=== PATIENT | female | born 1975 | race African-American/Black ===

== ENCOUNTER 2016-11-14 11:34 | Emergency (ER) | payer SELFPAY ==
[~2016-11-14 11:34] MED LIST: SULF1TAB24 PO
[2016-11-14 11:59] VITALS: BP 147/80
[2016-11-14] MEDS ORDERED: ONDA4TAB7 PO (12:32)
--- NOTE | 2016-11-14 12:32 | PHYS DOC ---
Past Medical History Past Medical History: No Pertinent History Past Surgical History: Other Additional Past Surgical Histo: umbilical hernia Alcohol Use: Rarely Drug Use: None Adult General Chief Complaint Chief Complaint: NAUSEA/VOMITING/DIARRHA HPI HPI 41-year-old female who states she's had ongoing diarrheal illness for the last 2 -3 days. She denies any nausea or vomiting. She denies any lightheadedness or dizziness. She denies any significant abdominal pain but does state she has some mild cramping prior to her diarrheal episodes that fully resolves after having a bowel movement. She denies any fever or chills. She does report some myalgias. She states her symptoms are worse on Tuesday at onset but have improved over the last several days. She is requesting a work note at this time. She does report that she had a recent head cold and believes this could be somewhat related. She denies any other specific symptoms at this time. Review of Systems Review of Systems Constitutional: Denies fever or chills [] Eyes: Denies change in visual acuity, redness, or eye pain [] HENT: Denies nasal congestion or sore throat [] Respiratory: Denies cough or shortness of breath [] Cardiovascular: No additional information not addressed in HPI [] GI: Denies abdominal pain, nausea, vomiting, bloody stools, has diarrhea [] : Denies dysuria or hematuria [] Musculoskeletal: Denies back pain or joint pain [] Integument: Denies rash or skin lesions [] Neurologic: Denies headache, focal weakness or sensory changes [] Endocrine: Denies polyuria or polydipsia [] Current Medications Current Medications Current Medications Medications (Trade) Dose Ordered Sig/[facility] Start Time Stop Time Status Last Admin Dose Admin Ondansetron HCl (Zofran Odt) 4 mg 1X ONCE 11/14/16 13:00 11/14/16 13:01 11/14/16 12:35 4 MG Allergies Allergies Allergies Coded Allergies Type Severity Reaction Last Updated Verified No Known Drug Allergies 04/03/16 No Physical Exam Physical Exam Constitutional: Well developed, well nourished, no acute distress, non-toxic appearance. [] HENT: Normocephalic, atraumatic, bilateral external ears normal, oropharynx moist, no oral exudates, nose normal. [] Eyes: PERRLA, EOMI, conjunctiva normal, no discharge. [] Neck: Normal range of motion, no tenderness, supple, no stridor. [] Cardiovascular:Heart rate regular rhythm, no murmur [] Lungs & Thorax: Bilateral breath sounds clear to auscultation [] Abdomen: Bowel sounds normal, soft, no tenderness, no masses, no pulsatile masses. [] Skin: Warm, dry, no erythema, no rash. [] Back: No tenderness, no CVA tenderness. [] Extremities: No tenderness, no cyanosis, no clubbing, ROM intact, no edema. [] Neurologic: Alert and oriented X 3, normal motor function, normal sensory function, no focal deficits noted. [] Psychologic: Affect normal, judgement normal, mood normal. [] Current Patient Data Vital Signs Vital Signs Date Time Temp Pulse Resp B/P Pulse Ox O2 Delivery O2 Flow Rate FiO2 11/14/16 11:59 98.4 16 16 100 Room Air 98.4 EKG EKG [] Radiology/Procedures Radiology/Procedures [] Course & Med Decision Making Course & Med Decision Making Pertinent Labs and Imaging studies reviewed. (See chart for details) 41-year-old female who's had ongoing diarrheal illness last 2-3 days will be discharged without need for workup. She successfully oral fluid challenged after Zofran ODT. She'll be provided a brief course of that. He was instructed to follow closely with her primary care doctor next several days if her symptoms do not resolve or if she is unable to tolerate oral fluids at home or if she develops any significant weakness. Dragon Disclaimer Dragon Disclaimer This electronic medical record was generated, in whole or in part, using a voice recognition dictation system. Departure Departure Impression: Primary Impression: Diarrhea Disposition: 01 HOME, SELF-CARE Admitting Physician: Other Condition: STABLE Referrals: TASHA NASH MD (PCP) Patient Instructions: Diarrhea, [id number] Additional Instructions: Please continue to drink plenty of fluids and take your zofran as needed. Follow up with your primary doctor in the next 2-3 days regarding your recent diarrhea. Return to the ER if you develop any worsening of your symptoms or are unable to tolerate fluids specifically water or become weak or lightheaded. Scripts Ondansetron Hcl (Zofran)4 Mg Tablet4 Mg PO BID PRN NAUSEA/VOMITING #10 TAB Prov:JESICA QUEZADA DO 11/14/16 JESICA QUEZADA DO Nov 14, 2016 12:32
[2016-11-14] MEDS ORDERED: ONDANSETRON ODT 4 MG TAB.RAPDIS PO ONE (13:00)
== END 2016-11-14 12:40 | disposition home or self-care (01) ==
LOC: ER 11:34
DX: R19.7 Diarrhea, unspecified (principal); Z98.890 Other specified postprocedural states
CPT/HCPCS: 99283; Q0162

== ENCOUNTER 2020-01-27 20:35 | Emergency (ER) | payer SELFPAY ==
[~2020-01-27] VITALS: Ht 167.6 cm; Wt 56.8 kg
[~2020-01-27 20:35] MED LIST changes: +ONDA4TAB7 PO
[2020-01-27] MEDS ORDERED: METH4TAB2 PO (21:23)
[2020-01-27] MEDS ORDERED: SULF1TAB24 PO (21:23)
--- NOTE | 2020-01-27 21:23 | PHYS DOC ---
Past Medical History Past Medical History: No Pertinent History Past Surgical History: Other Additional Past Surgical Histo: umbilical hernia Smoking Status: Current Every Day Smoker Alcohol Use: Rarely Drug Use: None General Adult EDM: Chief Complaint: SKIN PROBLEM HPI: HPI: Patient is a 44 year old female complains of rash, itching and burning to her right wrist. She states that she is getting a red streak that is going up her right arm. Patient thinks that she may have been bitten by something but does not know. She indicates that she has not been outside so has not been exposed to poison danish or anything like that. She denies any fever. [] Review of Systems: Review of Systems: Constitutional: Denies fever or chills. [] Respiratory: Denies cough or shortness of breath. [] Cardiovascular: Denies chest pain or edema. [] Integument: Complains of rash. [] Neurologic: Denies headache, focal weakness or sensory changes. [] Heart Score: Risk Factors: Risk Factors: DM, Current or recent (<one month) smoker, HTN, HLP, family history of CAD, obesity. Risk Scores: Score 0 - 3: 2.5% MACE over next 6 weeks - Discharge Home Score 4 - 6: 20.3% MACE over next 6 weeks - Admit for Clinical Observation Score 7 - 10: 72.7% MACE over next 6 weeks - Early Invasive Strategies Current Medications: Current Medications Medications (Trade) Dose Ordered Sig/[facility] Start Time Stop Time Status Last Admin Dose Admin Clonidine HCl (Catapres) 0.2 mg 1X ONCE 01/27/20 21:30 01/27/20 21:31 01/27/20 21:10 0.1 MG Prednisone (Prednisone) 50 mg 1X ONCE 01/27/20 21:30 01/27/20 21:31 01/27/20 21:09 50 MG Trimethoprim/ Sulfamethoxazole (Bactrim Ds) 1 tab 1X ONCE 01/27/20 21:30 01/27/20 21:31 01/27/20 21:09 1 TAB Allergies: Allergies: Allergies Coded Allergies Type Severity Reaction Last Updated Verified No Known Drug Allergies 04/03/16 No Physical Exam: PE: Constitutional: Well developed, well nourished, no acute distress, non-toxic ap pearance. [] Cardiovascular:Heart rate regular rhythm, no murmur [] Lungs & Thorax: Bilateral breath sounds clear to auscultation [] Skin: Volar aspect of right wrist demonstrates erythema, warmth with mild tenderness. [] Neurologic: Alert and oriented X 3, no focal deficits noted. [] Current Patient Data: Vital Signs: Vital Signs Date Time Temp Pulse Resp B/P (MAP) Pulse Ox O2 Delivery O2 Flow Rate FiO2 01/27/20 21:10 97 175/104 01/27/20 20:42 98.2 16 100 Room Air 98.2 EKG: EKG: [] Radiology/Procedures: Radiology/Procedures: [] Course & Med Decision Making: Course & Med Decision Making Pertinent Labs and Imaging studies reviewed. (See chart for details) [] Dragon Disclaimer: MulliganPlus Disclaimer: This electronic medical record was generated, in whole or in part, using a voice recognition dictation system. Departure Departure Impression: Primary Impression: Insect bite Qualified Codes: W57.XXXA - Bitten or stung by nonvenomous insect and other nonvenomous arthropods, initial encounter Disposition: 01 HOME, SELF-CARE Condition: STABLE Referrals: NO PCP (PCP) Patient Instructions: Insect Bite Scripts Methylprednisolone (MEDROL) 4 Mg Tab.ds.pk 1 PKG PO UD, #1 PKG Prov: ARA BOO Jr. DO 01/27/20 Sulfamethoxazole/Trimethoprim (BACTRIM DS TABLET) 1 Each Tablet 1 TAB PO BID for 10 Days, #20 TAB 0 Refills Prov: ARA BOO Jr. DO 01/27/20 ARA BOO Jr. DO January 27, 2020 21:23
[2020-01-27] MEDS ORDERED: SMZ/TMP 800/160MG TABLET. PO ONE (21:30)
[2020-01-27] MEDS ORDERED: cloNIDine HCL 0.1 MG TABLET PO ONE (21:30)
[2020-01-27] MEDS ORDERED: predniSONE 10 MG TABLET PO ONE (21:30)
[2020-01-27 21:40] VITALS: BP 178/96
== END 2020-01-27 21:41 | disposition home or self-care (01) ==
LOC: ER 20:35
DX: S60.861A Insect bite (nonvenomous) of right wrist, initial encounter (principal); R21 Rash and other nonspecific skin eruption; F17.200 Nicotine dependence, unspecified, uncomplicated; F12.90 Cannabis use, unspecified, uncomplicated; Z98.890 Other specified postprocedural states; W57.XXXA Bitten or stung by nonvenomous insect and other nonvenomous arthropods, initial encounter; Y93.89 Activity, other specified; Y92.89 Other specified places as the place of occurrence of the external cause; Y99.8 Other external cause status
CPT/HCPCS: 99284; J7512

== ENCOUNTER 2020-06-11 16:10 | Emergency (ER) | payer SELFPAY ==
[~2020-06-11] VITALS: Ht 167.6 cm; Wt 55.0 kg
[~2020-06-11 16:10] MED LIST changes: +METH4TAB2 PO
--- NOTE | 2020-06-11 16:40 | ED.ADGEN ---
Past Medical History Past Medical History: No Pertinent History Past Surgical History: Other Additional Past Surgical Histo: umbilical hernia Smoking Status: Current Every Day Smoker Alcohol Use: Rarely Drug Use: None Adult General Chief Complaint Chief Complaint: CHEST PAIN HPI HPI Patient is a 44 year old female coming in for chest pain for 2 weeks, states today got more intense and feels like a "grabbing" pain that radiates to the left also having blurred vision. Says pain is worse with stress. Has been seen prior to being diagnosed with hypertension but has not been on medications or seen her physician in years. Significant family history of heart disease and CT in mother. Smokes daily. Occasional alcohol use. Also complaining of occasional diarrhea, breast tenderness, itching in her bellybutton. Review of Systems Review of Systems Constitutional: Denies fever or chills. [] Eyes: Denies change in visual acuity. [] HENT: Denies nasal congestion or sore throat. [] Respiratory: Denies cough or shortness of breath. [] Cardiovascular: Denies chest pain or edema. [] GI: Denies abdominal pain, nausea, vomiting, bloody stools or diarrhea. [] : Denies dysuria. [] Musculoskeletal: Denies back pain or joint pain. [] Integument: Denies rash. [] Neurologic: Denies headache, focal weakness or sensory changes. [] Endocrine: Denies polyuria or polydipsia. [] Lymphatic: Denies swollen glands. [] Psychiatric: Denies depression or anxiety. [] Allergies Allergies Allergies Coded Allergies Type Severity Reaction Last Updated Verified No Known Drug Allergies 04/03/16 No Physical Exam Physical Exam Constitutional: Well developed, well nourished, no acute distress, non-toxic appearance. [] HENT: Normocephalic, atraumatic, bilateral external ears normal, oropharynx moist, no oral exudates, nose normal. [] Eyes: PERRLA, EOMI, conjunctiva normal, no discharge. [] Neck: Normal range of motion, no tenderness, supple, no stridor. [] Cardiovascular:Heart rate regular rhythm, no murmur [] Lungs & Thorax: Bilateral breath sounds clear to auscultation [] Abdomen: Bowel sounds normal, soft, no tenderness, no masses, no pulsatile masses. [] Skin: Warm, dry, no erythema, no rash. [] Back: No tenderness, no CVA tenderness. [] Extremities: No tenderness, no cyanosis, no clubbing, ROM intact, no edema. [] Neurologic: Alert and oriented X 3, normal motor function, normal sensory function, no focal deficits noted. [] Psychologic: Affect normal, judgement normal, mood normal. [] Current Patient Data Vital Signs Vital Signs Date Time Temp Pulse Resp B/P (MAP) Pulse Ox O2 Delivery O2 Flow Rate FiO2 06/11/20 16:10 98.2 99 18 102/60 (74) Room Air 98.2 Lab Values Laboratory Tests Test 06/11/20 16:30 White Blood Count 5.2 x10^3/uL (4.0-11.0) Red Blood Count 4.10 x10^6/uL (3.50-5.40) Hemoglobin 13.9 g/dL (12.0-15.5) Hematocrit 39.1 % (36.0-47.0) Mean Corpuscular Volume 96 fL (79-100) Mean Corpuscular Hemoglobin 34 pg (25-35) Mean Corpuscular Hemoglobin Concent 36 g/dL (31-37) Red Cell Distribution Width 12.8 % (11.5-14.5) Platelet Count 187 x10^3/uL (140-400) Neutrophils (%) (Auto) 50 % (31-73) Lymphocytes (%) (Auto) 39 % (24-48) Monocytes (%) (Auto) 7 % (0-9) Eosinophils (%) (Auto) 3 % (0-3) Basophils (%) (Auto) 1 % (0-3) Neutrophils # (Auto) 2.6 x10^3/uL (1.8-7.7) Lymphocytes # (Auto) 2.0 x10^3/uL (1.0-4.8) Monocytes # (Auto) 0.4 x10^3/uL (0.0-1.1) Eosinophils # (Auto) 0.1 x10^3/uL (0.0-0.7) Basophils # (Auto) 0.1 x10^3/uL (0.0-0.2) D-Dimer (Berkley) 0.38 ug/mlFEU (0.00-0.50) Sodium Level 141 mmol/L (136-145) Potassium Level 3.4 mmol/L (3.5-5.1) L Chloride Level 107 mmol/L (98-107) Carbon Dioxide Level 25 mmol/L (21-32) Anion Gap 9 (6-14) Blood Urea Nitrogen 5 mg/dL (7-20) L Creatinine 0.4 mg/dL (0.6-1.0) L Estimated GFR (Cockcroft-Gault) 209.8 BUN/Creatinine Ratio 13 (6-20) Glucose Level 80 mg/dL (70-99) Calcium Level 8.8 mg/dL (8.5-10.1) Magnesium Level 2.2 mg/dL (1.8-2.4) Total Bilirubin 0.2 mg/dL (0.2-1.0) Aspartate Amino Transferase (AST) 16 U/L (15-37) Alanine Aminotransferase (ALT) 18 U/L (14-59) Alkaline Phosphatase 46 U/L (46-116) Troponin I Quantitative < 0.017 ng/mL (0.000-0.055) OM-Bpt-Z-Type Natriuretic Peptide 357 pg/mL (0-124) H Total Protein 7.5 g/dL (6.4-8.2) Albumin 3.8 g/dL (3.4-5.0) Albumin/Globulin Ratio 1.0 (1.0-1.7) Lipase 109 U/L (73-393) Laboratory Tests 06/11/20 16:30 Laboratory Tests 06/11/20 16:30 EKG EKG Sinus tachycardia, normal intervals, normal axis, no ectopy, no ST elevation or depression [] Radiology/Procedures Radiology/Procedures [] Course & Med Decision Making Course & Med Decision Making Pertinent Labs and Imaging studies reviewed. (See chart for details) [] Pending chest x-ray shift change Dragon Disclaimer Dragon Disclaimer This electronic medical record was generated, in whole or in part, using a voice recognition dictation system. Departure Departure Impression: Primary Impression: Chest pain Disposition: HOME, SELF-CARE Condition: STABLE Referrals: NO PCP (PCP) Additional Instructions: [facility] [address] [place] [address] [facility] [address] [place] [address] [place] [address] [facility] [place] [address] [facility] [address] [place] [address] [facility] [address] [place] [address] [address] [place] [address] [address] [place] [address] [facility] [address] [place] [address] [facility] [address] [place] [address] [facility] [address] [place] [address] SALSA BROWER MD Jun 11, 2020 16:40
[2020-06-11 16:45] LABS: BASO # 0.1 x10^3/uL (0.0-0.2); BASO % 1 % (0-3); EOS # 0.1 x10^3/uL (0.0-0.7); EOS % 3 % (0-3); HEMATOCRIT 39.1 % (36.0-47.0); HEMOGLOBIN 13.9 g/dL (12.0-15.5); LYMPH % 39 % (24-48); MEAN CORPUSCULAR HEMOGLOBIN 34 pg (25-35); MEAN CORPUSCULAR HGB CONC 36 g/dL (31-37); MEAN CORPUSCULAR VOLUME 96 fL (79-100); MONO # 0.4 x10^3/uL (0.0-1.1); MONO % 7 % (0-9); NEUT # 2.6 x10^3/uL (1.8-7.7); NEUT % 50 % (31-73); PLATELET COUNT 187 x10^3/uL (140-400); RED CELL DISTRIBUTION WIDTH 12.8 % (11.5-14.5); WHITE BLOOD COUNT 5.2 x10^3/uL (4.0-11.0)
[2020-06-11 17:02] LABS: CALCIUM 8.8 mg/dL (8.5-10.1); CREATININE 0.4 mg/dL (0.6-1.0); GFR 209.8; POTASSIUM 3.4 mmol/L (3.5-5.1)
[2020-06-11 17:05] LABS: ALBUMIN 3.8 g/dL (3.4-5.0); MAGNESIUM 2.2 mg/dL (1.8-2.4); TOTAL BILIRUBIN 0.2 mg/dL (0.2-1.0); TOTAL PROTEIN 7.5 g/dL (6.4-8.2)
[2020-06-11 18:22] VITALS: BP 104/58
== END 2020-06-11 18:50 | disposition left against medical advice (07) ==
LOC: ER 16:10
DX: R07.89 Other chest pain (principal); H53.8 Other visual disturbances; F43.9 Reaction to severe stress, unspecified; R19.7 Diarrhea, unspecified; I10 Essential (primary) hypertension; R00.0 Tachycardia, unspecified; F17.200 Nicotine dependence, unspecified, uncomplicated
CPT/HCPCS: 36415; 80053; 83690; 83735; 83880; 84484; 85025; 85379; 93005; 99285

== ENCOUNTER 2020-12-28 15:48 | Emergency (ER) | payer SELFPAY ==
[~2020-12-28] VITALS: Ht 167.6 cm; Wt 50.0 kg
[2020-12-28] MEDS ORDERED: OFLO5DRO7 LEFT EAR (18:41)
[2020-12-28 18:42] VITALS: BP 178/88
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
== END 2020-12-28 18:57 | disposition home or self-care (01) ==
LOC: ER 15:48
DX: H66.92 Otitis media, unspecified, left ear (principal); H72.92 Unspecified perforation of tympanic membrane, left ear
CPT/HCPCS: 99283

== ENCOUNTER 2021-03-20 19:57 | Emergency (ER) | payer SELFPAY ==
[~2021-03-20 19:57] MED LIST changes: +OFLO5DRO7 LEFT EAR
[2021-03-20 20:00] VITALS: BP 116/75
== END 2021-03-20 20:23 | disposition left against medical advice (07) ==
LOC: ER 19:57
DX: S91.351A Open bite, right foot, initial encounter (principal); Z53.21 Procedure and treatment not carried out due to patient leaving prior to being seen by health care provider; W64.XXXA Exposure to other animate mechanical forces, initial encounter; Y93.89 Activity, other specified; Y92.89 Other specified places as the place of occurrence of the external cause; Y99.8 Other external cause status

== ENCOUNTER 2021-11-26 04:36 | Emergency (ER) | payer SELFPAY ==
[~2021-11-26] VITALS: Ht 167.6 cm; Wt 51.0 kg
[2021-11-26 04:40] VITALS: BP 177/104
[2021-11-26] MEDS ORDERED: TRET20GE2 TP (05:11)
[2021-11-26] MEDS ORDERED: DOXY100C3 PO (05:11)
--- NOTE | 2021-11-26 05:11 | PHYS DOC ---
Past Medical History Past Medical History: No Pertinent History Past Surgical History: No Surgical History Additional Past Surgical Histo: umbilical hernia Smoking Status: Current Every Day Smoker Alcohol Use: None Drug Use: None General Adult EDM: Chief Complaint: INSECT BITE HPI: HPI: Patient is a 46 year old female presents for evaluation of concern of an insect bite to the left face. Patient states over the last 2 days she has had some swelling and drainage of wound to her left face. On exam patient has very acne prone skin. Patient seems to have a pimple to her left cheek that has grown in size over the last 2 days. Significant other states he has been squeezing this area to try to express some pus. He states there has been some pus draining. Upon palpation wound appears to be 2 cm. Overlying skin is bleeding. Review of Systems: Review of Systems: Constitutional: Denies fever or chills. [] Eyes: Denies change in visual acuity. [] HENT: Denies nasal congestion or sore throat. [] Respiratory: Denies cough or shortness of breath. [] Cardiovascular: Denies chest pain or edema. [] GI: Denies abdominal pain, nausea, vomiting, bloody stools or diarrhea. [] : Denies dysuria. [] Musculoskeletal: Denies back pain or joint pain. [] Integument: Denies rash. [Positive abscess positive acne] Neurologic: Denies headache, focal weakness or sensory changes. [] Endocrine: Denies polyuria or polydipsia. [] Lymphatic: Denies swollen glands. [] Psychiatric: Denies depression or anxiety. [] Heart Score: C/O Chest Pain: N/A Risk Factors: Risk Factors: DM, Current or recent (<one month) smoker, HTN, HLP, family history of CAD, obesity. Risk Scores: Score 0 - 3: 2.5% MACE over next 6 weeks - Discharge Home Score 4 - 6: 20.3% MACE over next 6 weeks - Admit for Clinical Observation Score 7 - 10: 72.7% MACE over next 6 weeks - Early Invasive Strategies Allergies: Allergies: Allergies Coded Allergies Type Severity Reaction Last Updated Verified No Known Drug Allergies 11/26/21 No Physical Exam: PE: Constitutional: Well developed, well nourished, no acute distress, non-toxic appearance. [] HENT: Normocephalic, atraumatic, bilateral external ears normal, oropharynx moist, no oral exudates, nose normal. [] Eyes: PERRLA, EOMI, conjunctiva normal, no discharge. [] Neck: Normal range of motion, no tenderness, supple, no stridor. [] Cardiovascular:Heart rate regular rhythm, no murmur [] Lungs & Thorax: Bilateral breath sounds clear to auscultation [] Abdomen: Bowel sounds normal, soft, no tenderness, no masses, no pulsatile masses. [] Skin: Warm, dry, no erythema, no rash. [Abscess acne pimple left facial 2 cm overlying the area is some raw irritated bleeding wound] Back: No tenderness, no CVA tenderness. [] Extremities: No tenderness, no cyanosis, no clubbing, ROM intact, no edema. [] Neurologic: Alert and oriented X 3, normal motor function, normal sensory function, no focal deficits noted. [] Psychologic: Affect normal, judgement normal, mood normal. [] Current Patient Data: Vital Signs: Vital Signs Date Time Temp Pulse Resp B/P (MAP) Pulse Ox O2 Delivery O2 Flow Rate FiO2 11/26/21 04:40 98.2 82 18 177/104 (128) 100 Room Air 98.2 EKG: EKG: [] Radiology/Procedures: Radiology/Procedures: [] Course & Med Decision Making: Course & Med Decision Making Pertinent Labs and Imaging studies reviewed. (See chart for details) [] Placed on doxycycline and prescribed micro Retin-A. Nury Disclaimer: Nury Disclaimer: This electronic medical record was generated, in whole or in part, using a voice recognition dictation system. Departure Departure Impression: Primary Impression: Facial abscess Additional Impression: Acne Disposition: 01 HOME / SELF CARE / HOMELESS Condition: STABLE Referrals: NO PCP (PCP) Patient Instructions: Abscess Scripts Tretinoin Microspheres (RETIN-A MICRO) 20 Gm Gel..gram. 1 JARON TP QHS, #45 GM 3 Refills Prov: MATIASCECE Saenz 11/26/21 Doxycycline Hyclate (DOXYCYCLINE HYCLATE) 100 Mg Capsule 1 CAP PO BID for 30 Days, #60 CAP Prov: MATIASCECE Letty LONG 11/26/21 MATIASCECE Saenz Nov 26, 2021 05:11
== END 2021-11-26 05:15 | disposition home or self-care (01) ==
LOC: ER 04:36
DX: L02.01 Cutaneous abscess of face (principal); L70.9 Acne, unspecified; F17.200 Nicotine dependence, unspecified, uncomplicated
CPT/HCPCS: 99283